=== PATIENT | male | born 1995 | race Caucasian/White ===

== ENCOUNTER 2021-01-01 10:53 | Emergency (ER) | payer MEDICAID, OTHER ==
[~2021-01-01] VITALS: Ht 180.3 cm; Wt 77.3 kg
[2021-01-01 11:14] VITALS: BP 154/93
[2021-01-01] MEDS ORDERED: CefTRIAXone 1000mg IM Kit (w/lidocaine diluent) IM STA (12:06)
[2021-01-01] MEDS ORDERED: azithromycin 250mg tablet PO ONE (12:10)
[2021-01-01 12:12] LABS: CLARITY,URINE CLOUDY (Clear); COLOR,URINE YELLOW (Yellow); GLUCOSE, URINE NEGATIVE (Neg); KETONES,URINE NEGATIVE (Neg); LEUKOCYTE ESTERASE ,URINE NEGATIVE (Neg); NITRITES, URINE NEGATIVE (Neg); OCCULT BLOOD,URINE NEGATIVE (Neg); PROTEIN,URINE NEGATIVE (Neg); UA COLLECTION TYPE CLN CATCH MIDSTREAM; UROBILINOGEN,URINE 0.2 E.U/dL (0.2-1.0)
[2021-01-01 12:17] LABS: AMORPHOUS PHOSPHATES 4+; BACTERIA,URINE NONE SEEN /HPF (Neg); RBC,URINE NONE SEEN /HPF (0-2); SQUAMOUS EPITHELIAL CELL,UR NONE SEEN /LPF (FEW); WBC,URINE NONE SEEN /HPF (0-4)
== END 2021-01-01 12:45 | disposition home or self-care (01) ==
LOC: ER 10:53
DX: R30.9 Painful micturition, unspecified (principal); F12.90 Cannabis use, unspecified, uncomplicated
CPT/HCPCS: 36415; 81001; 87491; 87591; 96372; 99283; J0696

== ENCOUNTER 2022-07-02 06:09 | Emergency (ER) | payer MEDICAID ==
[~2022-07-02] VITALS: Ht 180.3 cm; Wt 81.8 kg
[2022-07-02] MEDS ORDERED: ketorolac trometh. 30mg/ml inj. IV ONE (06:45)
[2022-07-02] MEDS ORDERED: normal saline 1000ML IV soln IVB ONE (06:45)
[2022-07-02 07:00] LABS: CLARITY,URINE CLEAR (Clear); COLOR,URINE STRAW (Yellow); GLUCOSE, URINE NEGATIVE (Neg); KETONES,URINE NEGATIVE (Neg); LEUKOCYTE ESTERASE ,URINE NEGATIVE (Neg); NITRITES, URINE NEGATIVE (Neg); OCCULT BLOOD,URINE NEGATIVE (Neg); PROTEIN,URINE NEGATIVE (Neg); UROBILINOGEN,URINE 0.2 E.U/dL (0.2-1.0)
[2022-07-02 07:21] LABS: ALANINE AMINOTRANSFERASE 15 U/L (12-78); ALBUMIN 4.6 G/DL (3.4-5.0); ALBUMIN/GLOBULIN RATIO 1.5 (1.1-1.5); ALKALINE PHOSPHATASE 53 IU/L (46-116); ANION GAP 12 (8-16); ASPARTATE AMINO TRANSFERASE 18 U/L (10-37); BILIRUBIN,TOTAL 0.4 MG/DL (0.1-1.0); BLOOD UREA NITROGEN 13 MG/DL (7-18); BUN/CREATININE RATIO 13.3 (10.0-20.0); CALCIUM 9.6 MG/DL (8.5-10.1); CHLORIDE 103 MMOL/L (99-107); CREATININE 0.98 MG/DL (0.60-1.10); GLUCOSE 101 MG/DL (70-104); LIPASE < 50 U/L (73-393); POTASSIUM 3.6 MMOL/L (3.5-5.1); SODIUM 138 MMOL/L (135-145); TOTAL CARBON DIOXIDE 22.6 MMOL/L (24-32); TOTAL PROTEIN 7.7 G/DL (6.4-8.2); eGFR > 90 ML/MIN
[2022-07-02 07:23] LABS: UA COLLECTION TYPE URINAL
[2022-07-02 08:09] LABS: BASOPHILS # (AUTO) 0.1 X10'3 (0-0.2); BASOPHILS % (AUTO) 0.9 % (0-1); EOSINOPHILS # (AUTO) 0.1 X10'3 (0-0.9); EOSINOPHILS % (AUTO) 1.7 % (0-6); HEMATOCRIT 42.5 % (42.0-52.0); HEMOGLOBIN 14.2 g/dl (14.0-17.9); LYMPHOCYTES # (AUTO) 0.2 X10'3 (1.1-4.8); LYMPHOCYTES % (AUTO) 3.3 % (21-51); MEAN CORPUSCULAR HEMOGLOBIN 29.1 PG (27.0-31.0); MEAN CORPUSCULAR HGB CONC 33.4 g/dL (33.0-36.5); MEAN CORPUSCULAR VOLUME 87.2 FL (78-98); MEAN PLATELET VOLUME 8.9 FL (7.4-10.4); MONOCYTES # (AUTO) 0.8 X10'3 (0-0.9); MONOCYTES % (AUTO) 13.4 % (2-12); NEUTROPHILS # (AUTO) 4.8 X10'3 (1.8-7.7); NEUTROPHILS % (AUTO) 80.7 % (42-75); PLATELET COUNT 190 X10'3 (140-440); RED BLOOD COUNT 4.88 X10'6 (4.70-6.10); RED CELL DISTRIBUTION WIDTH 13.2 % (11.5-14.5); WHITE BLOOD COUNT 5.9 X10'3 (4.5-11.0)
[2022-07-02] MEDS ORDERED: DICY10CA14 PO (08:17)
[2022-07-02] MEDS ORDERED: HYDROcodone/acetaminophen 5mg/325mg tablet PO ONE (08:20)
[2022-07-02 09:01] VITALS: BP 127/75
== END 2022-07-02 09:09 | disposition home or self-care (01) ==
LOC: ER 06:09
DX: R10.31 Right lower quadrant pain (principal)
CPT/HCPCS: 36415; 74176; 80053; 81003; 83690; 85025; 96361; 96374; 99285; J1885; J7030

== ENCOUNTER 2022-12-05 21:45 | Emergency (ER) | payer MEDICAID ==
[~2022-12-05] VITALS: Ht 180.3 cm; Wt 75.0 kg
[~2022-12-05 21:45] MED LIST: DICY-19 PO
[2022-12-05] MEDS ORDERED: normal saline 1000ml 1,000 ML IV ONE ×2 (22:20)
[2022-12-05] MEDS ORDERED: morphine 4 MG/ML inj SYRINge IV ONE (22:20)
[2022-12-05] MEDS ORDERED: ondansetron/PF 4mg/2ml inj IV ONE (22:20)
[2022-12-05] MEDS ORDERED: iohexol 300mg/ml 100ml inj. ONE (22:26)
[2022-12-05 23:33] LABS: ALANINE AMINOTRANSFERASE 19 U/L (12-78); ALBUMIN 4.4 G/DL (3.4-5.0); ALBUMIN/GLOBULIN RATIO 1.4 (1.1-1.5); ALKALINE PHOSPHATASE 80 IU/L (46-116); BILIRUBIN,TOTAL 0.3 MG/DL (0.1-1.0); BLOOD UREA NITROGEN 22 MG/DL (7-18); BUN/CREATININE RATIO 23.7 (10.0-20.0); CHLORIDE 103 MMOL/L (99-107); CREATININE 0.93 MG/DL (0.60-1.10); ETHANOL 71 MG/DL (<10); LIPASE 50 U/L (73-393); TOTAL CARBON DIOXIDE 22.3 MMOL/L (24-32); TOTAL PROTEIN 7.5 G/DL (6.4-8.2); eCRCL 127 ML/MIN; eGFR > 90 ML/MIN
[2022-12-05 23:36] LABS: BASOPHILS # (AUTO) 0.2 X10'3 (0-0.2); EOSINOPHILS # (AUTO) 0.2 X10'3 (0-0.9); EOSINOPHILS % (AUTO) 0.9 % (0-6); HEMOGLOBIN 14.7 g/dl (14.0-17.9); LYMPHOCYTES # (AUTO) 1.5 X10'3 (1.1-4.8); LYMPHOCYTES % (AUTO) 7.6 % (21-51); MEAN CORPUSCULAR HEMOGLOBIN 29.9 PG (27.0-31.0); MEAN CORPUSCULAR HGB CONC 34.1 g/dL (33.0-36.5); MEAN CORPUSCULAR VOLUME 87.8 FL (78-98); MEAN PLATELET VOLUME 8.7 FL (7.4-10.4); MONOCYTES # (AUTO) 1.2 X10'3 (0-0.9); NEUTROPHILS # (AUTO) 16.4 X10'3 (1.8-7.7); NEUTROPHILS % (AUTO) 84.5 % (42-75); PLATELET COUNT 198 X10'3 (140-440); RED CELL DISTRIBUTION WIDTH 13.4 % (11.5-14.5); WHITE BLOOD COUNT 19.4 X10'3 (4.5-11.0)
[2022-12-05 23:53] LABS: ANION GAP 15 (8-16); SODIUM 140 MMOL/L (135-145)
[2022-12-05 23:55] LABS: ASPARTATE AMINO TRANSFERASE 21 U/L (10-37); GLUCOSE 102 MG/DL (70-104); POTASSIUM 3.9 MMOL/L (3.5-5.1)
[2022-12-06 00:07] VITALS: BP 137/78; PULSE 76; O2SAT 98
[2022-12-06 00:07] LABS: APTT 28 SECONDS (22-32); PROTHROMBIN TIME 10.4 SECONDS (9.0-12.0)
[2022-12-06 00:12] VITALS: RESP 18
[2022-12-06] MEDS ORDERED: HYDR-3965 PO (00:31)
[2022-12-06] MEDS ORDERED: HYDROcodone/acetaminophen 10/325mg tab PO ONE (00:50)
[2022-12-06 00:51] VITALS: TEMP 97.8
[2022-12-06 01:02] LABS: BILIRUBIN,URINE NEGATIVE (Neg); CLARITY,URINE CLEAR (Clear); COLOR,URINE STRAW (Yellow); GLUCOSE, URINE NEGATIVE (Neg); KETONES,URINE 15 mg/dl (Neg); LEUKOCYTE ESTERASE ,URINE NEGATIVE (Neg); NITRITES, URINE NEGATIVE (Neg); OCCULT BLOOD,URINE MODERATE (Neg); PH,URINE 5.5 (4.8-8.0); PROTEIN,URINE NEGATIVE (Neg); UROBILINOGEN,URINE 0.2 E.U/dL (0.2-1.0)
[2022-12-06 01:10] LABS: URINE AMPHETAMINE SCREEN NEGATIVE (Neg); URINE BARBITUATE SCREEN NEGATIVE (Neg); URINE BENZODIAZEPINES SCREEN NEGATIVE (Neg); URINE CANNABINOID SCREEN POSITIVE (Neg); URINE COCAINE SCREEN NEGATIVE (Neg); URINE METHADONE SCREEN NEGATIVE (Neg); URINE OPIATE SCREEN POSITIVE (Neg); URINE PHENCYCLIDINE SCREEN NEGATIVE (Neg)
[2022-12-06 01:14] LABS: UA COLLECTION TYPE CLN CATCH MIDSTREAM
[2022-12-06 01:15] LABS: SQUAMOUS EPITHELIAL CELL,UR NONE SEEN /LPF (FEW)
[2022-12-06 01:16] LABS: BACTERIA,URINE FEW /HPF (Neg); WBC,URINE 0-4 /HPF (0-4)
[2022-12-06 05:01] LABS: TOTAL CELLS COUNTED 100
[2022-12-06 05:03] LABS: HYPERSEGMENTED NEUTROPHILS FEW; PLATELET ESTIMATE NORMAL; TOXIC GRANULATION 2+
[2022-12-06 05:07] LABS: ANISOCYTOSIS 1+
[2022-12-06 05:19] LABS: MICROCYTOSIS 2+
== END 2022-12-06 01:07 | disposition home or self-care (01) ==
LOC: ER 21:45
DX: S06.0X0A Concussion without loss of consciousness, initial encounter (principal); S30.0XXA Contusion of lower back and pelvis, initial encounter; S60.222A Contusion of left hand, initial encounter; F10.129 Alcohol abuse with intoxication, unspecified; Y90.0 Blood alcohol level of less than 20 mg/100 ml; S06.2XAA Diffuse traumatic brain injury with loss of consciousness status unknown, initial encounter; S30.1XXA Contusion of abdominal wall, initial encounter; F12.90 Cannabis use, unspecified, uncomplicated; Z79.899 Other long term (current) drug therapy
CPT/HCPCS: 36415; 70450; 71260; 72125; 73110; 73130; 74177; 80053; 80305; 80320; 81001; 83690; 84484; 85007; 85025; 85610; 85730; 96374; 96375; 99291; J2270; J2405; J3490; J7030; Q9967; 86885; 86900; 86901

== ENCOUNTER 2023-09-30 15:09 | Emergency (ER) | payer MEDICAID ==
[~2023-09-30] VITALS: Ht 180.3 cm; Wt 77.3 kg
[2023-09-30] MEDS ORDERED: HYDR-3965 PO (16:25)
[2023-09-30] MEDS ORDERED: IBUP-1985 PO (16:25)
[2023-09-30] MEDS: ibuprofen tablet 400 MG TABLET PO ONE (16:31)
[2023-09-30 16:34] VITALS: BP 122/77; PULSE 71; RESP 16; TEMP 98.5; O2SAT 99
== END 2023-09-30 16:36 | disposition home or self-care (01) ==
LOC: ER 15:09
DX: M70.42 Prepatellar bursitis, left knee (principal); Y93.89 Activity, other specified; F12.90 Cannabis use, unspecified, uncomplicated; Z79.899 Other long term (current) drug therapy
CPT/HCPCS: 73564; 99283; A6449